=== PATIENT | male | born 1940 | race Caucasian/White ===

== ENCOUNTER 2021-10-03 15:34 | Emergency (ER) | payer OTHER ==
[~2021-10-03] VITALS: Ht 177.8 cm; Wt 72.6 kg
[2021-10-03] MEDS ORDERED: AMLODIPINE BESY10 MG (16:51)
[2021-10-03] MEDS ORDERED: OMEPRAZOLE40 MG (16:52)
[2021-10-03] MEDS ORDERED: ALLOPURINOL100 MG (16:52)
[2021-10-03] MEDS ORDERED: LISINOPRIL10 MG (16:52)
[2021-10-03] MEDS ORDERED: ELIQUIS5 MG (16:52)
[2021-10-03] MEDS ORDERED: CEFDINIR300 MG (16:53)
[2021-10-03] MEDS ORDERED: HYDROCODON-ACE1 EAC7 (16:53)
[2021-10-03] MEDS ORDERED: COLCHICINE0.6 MG (16:53)
== END 2021-10-03 17:49 | disposition home or self-care (01) ==
LOC: ER 15:34
DX: S80.12XA Contusion of left lower leg, initial encounter (principal); W22.8XXA Striking against or struck by other objects, initial encounter; Y93.89 Activity, other specified; Y92.89 Other specified places as the place of occurrence of the external cause; Y99.8 Other external cause status